=== PATIENT | male | born 1955 | race Two or more races ===

== ENCOUNTER 2023-09-26 16:33 | Emergency (ER) | payer OTHER ==
[~2023-09-26] VITALS: Ht 185.4 cm; Wt 90.9 kg
[2023-09-26] MEDS: SODIUM CHLORIDE 0.9% 1,000 ML IV ONE (17:05)
[2023-09-26 17:33] LABS: Basophils # (auto) 0 10 ^3/uL (0-0.2); Basophils % (auto) 0.4 % (0.0-2.0); Eosinophils # (auto) 0.1 10 ^3/uL (0-0.8); Eosinophils % (auto) 0.9 % (0.0-7.0); Hematocrit 39.4 % (41.0-53.0); Hemoglobin 13.6 g/dL (13.5-17.5); Lymphocytes # (auto) 1.2 10 ^3/uL (0.4-5.4); Lymphocytes % (auto) 12.1 % (10.0-50.0); Mean Corpuscular Hemoglobin 31.4 pg (28.0-32.0); Mean Corpuscular Hgb Conc. 34.5 g/dL (32.0-36.0); Mean Corpuscular Volume 91.1 fL (80.0-100.0); Monocytes # (auto) 0.5 10 ^3/uL (0-1.3); Monocytes % (auto) 5.4 % (0.0-12.0); Neutrophils # (auto) 8.2 10 ^3/uL (1.6-8.6); Neutrophils % (auto) 81.2 % (37.0-80.0); Nucleated Red Blood Cells % 0.2 %; Red Blood Cells 4.33 10^6/uL (4.5-5.90); Red Cell Distribution Width 13.9 % (11.8-14.3); White Blood Cell 10.1 10^3/uL (4.4-10.8)
[2023-09-26 17:43] LABS: Chloride 105 mmol/L (98-107); Potassium 3.8 mmol/L (3.5-5.1); Sodium 139 mmol/L (136-145)
[2023-09-26 17:44] LABS: Anion Gap 13 (5-15); Carbon Dioxide 21 mmol/L (20-30)
[2023-09-26 17:45] LABS: Calcium 10.3 mg/dL (8.7-10.4)
[2023-09-26 17:49] LABS: BUN/Creatinine Ratio 14.2 (10.0-20.0); Blood Urea Nitrogen 18 mg/dL (9-23); Glucose 204 mg/dL (74-106)
[2023-09-26] MEDS: ONDANSETRON HCL 4 MG/2 ML VIAL IV ONE ×2 (17:59→19:52)
[2023-09-26] MEDS: MORPHINE SULFATE 4 MG/ML SYR/VIAL IV ONE ×2 (18:04→19:51)
[2023-09-26] MEDS: PROPOFOL 10 MG/ML 20 ML IV ONE ×2 (18:29→19:06)
[2023-09-26 19:39] VITALS: TEMP 98.7; O2SAT 99
[2023-09-26 19:51] VITALS: BP 143/80; PULSE 80; RESP 18
== END 2023-09-26 18:11 | disposition short-term general hospital (02) ==
LOC: EDBD 16:33 → ER 16:33
DX: S43.004A Unspecified dislocation of right shoulder joint, initial encounter (principal); S72.91XA Unspecified fracture of right femur, initial encounter for closed fracture; X50.1XXA Overexertion from prolonged static or awkward postures, initial encounter; Y93.89 Activity, other specified; Y92.89 Other specified places as the place of occurrence of the external cause; Y99.8 Other external cause status
CPT/HCPCS: 23650; 36415; 73020; 73030; 73060; 73502; 73562; 80048; 85025; 96361; 96374; 96375; 96376; 99152; 99285; J2270; J2405; J2704; J7030